=== PATIENT | male | born 1990 | race Caucasian/White ===

== ENCOUNTER 2019-06-10 12:42 | Emergency (ER) | payer MEDICAID ==
[~2019-06-10] VITALS: Ht 180.3 cm; Wt 112.9 kg
[2019-06-10 13:01] VITALS: BP 151/100
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
--- NOTE | 2019-06-10 13:10 | NUR ---
Pt sent to ER lobby to wait for available bed.
--- NOTE | 2019-06-10 13:42 | NUR ---
PT AMBULATD TO BED 2.
--- NOTE | 2019-06-10 13:50 | NUR ---
DR THORPE AT BEDSIDE
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
--- NOTE | 2019-06-10 14:11 | NUR ---
PT REFUSING ICE PACK AT THIS TIME
[2019-06-10] MEDS ORDERED: HYDROcodone/APAP 5/325 MG 1 TAB TAB PO ONE (14:20)
[2019-06-10] MEDS ORDERED: LIDOCAINE MPF 1% 10 MG/ML VIAL INJ ONE (14:20)
[2019-06-10] MEDS ORDERED: NACL 0.9% 1,000 ML IV ONE ×2 (14:20→15:35)
--- NOTE | 2019-06-10 14:26 | NUR ---
LAB AT BEDSIDE
--- NOTE | 2019-06-10 14:26 | NUR ---
NORCO PO ADMINISTERED
--- NOTE | 2019-06-10 14:37 | NUR ---
PT SIGNED CONSENT FORM FOR TDAP
--- NOTE | 2019-06-10 14:37 | NUR ---
XRAY AT BEDSIDE
[2019-06-10 15:00] LABS: BASOPHILS % (AUTO) 0.4 % (0.0-2.0); EOSINOPHILS % (AUTO) 0.2 % (0.0-4.0); HEMATOCRIT 41.7 % (36-52); HEMOGLOBIN 14.1 g/dL (12.0-18.0); LYMPHOCYTES # (AUTO) 2.1 K/uL (2.0-11.5); LYMPHOCYTES % (AUTO) 21.6 % (20.5-51.1); MEAN CORPUSCULAR HEMOGLOBIN 30 pg (27-31); MEAN CORPUSCULAR HGB CONC 34 g/dL (33-37); MEAN CORPUSCULAR VOLUME 88.2 fL (80-94); MONOCYTES # (AUTO) 0.8 K/uL (0.8-1.0); MONOCYTES % (AUTO) 7.7 % (1.7-9.3); NEUTROPHILS % (AUTO) 70.1 % (42.2-75.2); PLATELET COUNT (AUTO) 287 K/uL (140-450); RED BLOOD CELL COUNT(AUTO) 4.73 MIL/uL (4.20-6.10); RED CELL DISTRIBUTION WIDTH 16.5 % (11.6-13.7); WHITE BLOOD COUNT (AUTO) 9.9 K/uL (4.8-10.8)
--- NOTE | 2019-06-10 15:00 | NUR ---
IV INSERTED AND BOLUS STARTED
--- NOTE | 2019-06-10 15:00 | NUR ---
PT SIGNED CT WITH CONTRAST CONSENT
[2019-06-10 15:19] LABS: ALBUMIN 3.1 g/dL (3.4-5.0); ANION GAP 19.2 (8-16); CARBON DIOXIDE 25.3 mmol/L (21-32); POTASSIUM 4.5 mmol/L (3.5-5.1); TOTAL BILIRUBIN 0.5 mg/dL (0.0-1.0)
--- NOTE | 2019-06-10 15:24 | NUR ---
PT AMB TO RESTROOM WITH STEADY GAIT
--- NOTE | 2019-06-10 15:34 | NUR ---
NADR, PAIN 7/10 PER PATIENT
[2019-06-10] MEDS ORDERED: INSULIN REGULAR, HUMAN 100 UNIT/ML VIAL SUBQ ONE (15:35)
[2019-06-10] MEDS ORDERED: ceFAZolin 1,000 MG VIAL ONE (15:41)
--- NOTE | 2019-06-10 15:49 | NUR ---
PT GOING TO CT VIA WHEELCHAIR
--- NOTE | 2019-06-10 16:00 | NUR ---
Patient returned from CT via w/c and placed in bed 2.
--- NOTE | 2019-06-10 16:12 | NUR ---
NACL BOLUS STARTED. INSULIN ADMINISTERED. ANTIBIOTIC STARTED
--- NOTE | 2019-06-10 16:50 | NUR ---
ACCU CHECK 406
--- NOTE | 2019-06-10 16:53 | NUR ---
NADR AT THIS TIME.
--- NOTE | 2019-06-10 18:18 | NUR ---
PAIN 7/10 PER PATIENT TO FINGER. INFORMED PT THAT WE ARE PENDING PROCEDURE AT THIS TIME. LACERATION TRAY AT BEDSIDE, LIDOCAINE AT BEDSIDE
--- NOTE | 2019-06-10 18:28 | NUR ---
ACCU CHECK 353
--- NOTE | 2019-06-10 18:46 | NUR ---
DR THORPE AT BEDSIDE FOR SUTURES
[2019-06-10] MEDS ORDERED: BACITRACIN OINT 500 UNITS/GM PKT TP ONE (19:00)
--- NOTE | 2019-06-10 19:12 | NUR ---
REPORT GIVEN TO MIRANDA PICKERING, PENDING BACITRACIN, THEN WRAP, THEN DISCHARGE
--- NOTE | 2019-06-10 19:17 | NUR ---
PT WOUNDS ON L 4TH AND 5TH DIGIT COVERED WITH NON ADHERENT DRESSING AND WRAPPED WITH COFLEX AFTER BACITRACIN APPLIED.
[2019-06-10 19:57] VITALS: BP 112/72
--- NOTE | 2019-06-10 19:58 | NUR ---
Patient discharged with v/s stable. Written and verbal after care instructions given and explained. Patient alert, oriented and verbalized understanding of instructions. Ambulatory with steady gait. All questions addressed prior to discharge. ID band removed. Patient advised to follow up with PMD about elevated blood sugar. Rx of NORCO, KEFLEX given. Patient educated on indication of medication including possible reaction and side effects. Opportunity to ask questions provided and answered.
== END 2019-06-10 19:58 | disposition home or self-care (01) ==
LOC: MED 12:42 → EDSEX 12:42 → MED 19:58
DX: S61.215A Laceration without foreign body of left ring finger without damage to nail, initial encounter (principal); R10.12 Left upper quadrant pain; R07.81 Pleurodynia; M79.10 Myalgia, unspecified site; M25.511 Pain in right shoulder; M54.5 Low back pain; Y09 Assault by unspecified means; Y93.39 Activity, other involving climbing, rappelling and jumping off; Y92.89 Other specified places as the place of occurrence of the external cause; Y99.8 Other external cause status
CPT/HCPCS: 12001; 36415; 73030; 73140; 74177; 80053; 82948; 85025; 90471; 90715; 96365; 96372; 99284; J0690; J1815; J2001; J7060; Q0092; Q9967